=== PATIENT | male | born 1990 | race Caucasian/White ===

== ENCOUNTER 2018-10-09 00:57 | Emergency (ER) | payer OTHER ==
--- NOTE | 2018-10-09 01:33 | ED.PDOC ---
History of Present Illness - General Chief Complaint: Back Pain or Injury Stated Complaint: lower back pain, poss constipation Time Seen by Provider: 10/09/18 01:22 Source: patient Exam Limitations: no limitations - History of Present Illness Initial Comments: Patient presents with low back pain for 24 hours. It is mid-lumbar, constant, aching, worse with "certain types of movement", better with rest, denies previous episodes. He had N/V several times this morning. He has been able to hold down some liquids and soft foods this afternoon and evening. He denies any recent heavy physical activity. He drives a truck for a living. Smokes 1ppd. He was at another E.R[facility] yesterday for a painful left upper maxillary molar and was given Naproxen for that but he has not taken it, yet. He says he was not given an antibiotic. No other complaints. Timing/Duration: 24 hours Severity: mild Improving Factors: rest Worsening Factors: movement Associated Symptoms: other - as in HPI Allergies/Adverse Reactions: Allergies Penicillins Allergy (Verified 10/09/18 01:15) Home Medications: Ambulatory Orders Clindamycin HCl 300 mg PO QID #40 cap 10/09/18 Naproxen [Naproxen EC] 500 mg PO BID PRN 10/09/18 Tramadol HCl 50 mg PO Q6HR PRN 10/09/18 Review of Systems - Review of Systems Constitutional: States: no symptoms reported EENTM: States: no symptoms reported Respiratory: States: no symptoms reported Cardiology: States: no symptoms reported Gastrointestinal/Abdominal: States: see HPI Genitourinary: States: no symptoms reported Musculoskeletal: States: see HPI Skin: States: no symptoms reported Neurological: States: no symptoms reported Endocrine: States: no symptoms reported Hematologic/Lymphatic: States: no symptoms reported Past Medical History (General) - Patient Medical History Hx Seizures: No Hx Stroke: No Hx Dementia: No Hx Asthma: No Hx of COPD: No Hx Cardiac Disorders: No Hx Congestive Heart Failure: No Hx Pacemaker: No Hx Hypertension: No Hx Thyroid Disease: No Hx Diabetes: No Hx Gastroesophageal Reflux: No Hx Renal Disease: No Hx Cancer: No Hx of HIV: No Hx Hepatitis C: No Hx MRSA: No Surgical History: no surgical history - Vaccination History Hx Tetanus, Diphtheria Vaccination: No Hx Influenza Vaccination: No - Social History Hx Tobacco Use: Yes Family Medical History - Family History Mother Family History: Unknown Physical Exam - Physical Exam General Appearance: Alert Eye Exam: bilateral normal Ears, Nose, Throat: normal ENT inspection Neck: non-tender, full range of motion, supple, lymphadenopathy (L) - left anterior cervical LAD, TTP, mobile, fluctuant, rubbery in consistency, 2 cm Respiratory: lungs clear, normal breath sounds Cardiovascular/Chest: normal peripheral pulses, regular rate, rhythm Gastrointestinal/Abdominal: normal bowel sounds, non tender, soft Back Exam: normal inspection, no CVA tenderness Extremity: normal range of motion, non-tender, normal inspection Neurologic: no motor/sensory deficits, alert, normal mood/affect, oriented x 3 Skin Exam: normal color Lymphatic: no adenopathy Progress - Progress Progress: 10/09/18 03:09 Laboratory Tests 10/09/18 10/09/18 10/09/18 01:29 01:29 01:31 WBC 11.9 H RBC 4.71 Hgb 14.7 Hct 41.2 L MCV 87.5 MCH 31.3 H MCHC 35.8 RDW 12.9 Plt Count 254 MPV 7.5 Absolute Neuts (auto) 9.10 H Absolute Lymphs (auto) 1.60 Absolute Monos (auto) 1.10 H Absolute Eos (auto) 0.10 Absolute Basos (auto) 0.10 Neutrophils % 76.4 Lymphocytes % 13.5 L Monocytes % 8.9 Eosinophils % 0.7 L Basophils % 0.5 Sodium 141 Potassium 3.9 Chloride 103 Carbon Dioxide 25 Anion Gap 16.9 BUN 15 Creatinine 1.97 H BUN/Creatinine Ratio 7.6 L Random Glucose 108 H Serum Osmolality 282.6 Calcium 9.2 Total Bilirubin 0.9 AST 20 ALT 16 Alkaline Phosphatase 69 Serum Total Protein 7.7 Albumin 4.4 Globulin 3.3 Albumin/Globulin Ratio 1.3 Lipase 21 L Urine Color Yellow Urine Appearance Cloudy Urine pH 5.5 Ur Specific [place] <= 1.005 Urine Protein 30 Urine Glucose (UA) Negative Urine Ketones Negative Urine Blood Small H Urine Nitrite Negative Urine Bilirubin Negative Urine Urobilinogen 0.2 Ur Leukocyte Esterase Negative Urine RBC 0-1 Urine WBC 0-1 Ur Epithelial Cells 0 Ur Renal Epithelial Cell 0-1 Urine Bacteria [address] ab/pelvis showed no stone. I was concerned about the left anterior cervical LAD in relation to the tooth. In the context of the low grade fever, this could be a developing abscess or infection. I gave the patient clindamycin 300 mg po x one in the E.D. with instructions to call the dentist today and get an appointment in the next week. I gave him an RX for clindamycin 300 mg qid x 10 days. Care instructions given. E.R. warnings given. Questions were elicited and answered. Patient voiced understanding and agreement with the plan. Departure - Departure Clinical Impression: Low back pain, Pain, dental Disposition: Discharge to Home or Self Care Condition: Good Departure Forms: ED Discharge - Pt. Copy, Patient Portal Self Enrollment Instructions: DI for Low Back Pain Diet: resume usual diet, other - increase oral fluids Activity: increase activity as tolerated Referrals: UNKNOWN,PHYSICIAN [Primary Care Provider] - 1-2 Weeks Prescriptions: Clindamycin HCl 300 mg PO QID #40 cap Home Medications: Ambulatory Orders Clindamycin HCl 300 mg PO QID #40 cap 10/09/18 Naproxen [Naproxen EC] 500 mg PO BID PRN 10/09/18 Tramadol HCl 50 mg PO Q6HR PRN 10/09/18 Additional Instructions: Call a dentist today and see when they want to see you about your left sided dental infection.
--- NOTE | 2018-10-09 02:58 | CT ---
CLINICAL HISTORY: back pain, hematuria COMPARISON: None. TECHNIQUE: CT ABDOMEN PELVIS WITHOUT IV CONTRAST on 10/09/2018 2:24 AM CDT This exam was performed according to our departmental dose-optimization program, which includes automated exposure control, adjustment of the mA and/or kV according to patient size and/or use of iterative reconstruction technique. FINDINGS: Lower lungs are clear. Abdomen: The liver is normal in appearance. There is no biliary dilatation. The gallbladder is normal in appearance. The pancreas and spleen are normal in appearance. The adrenal glands and kidneys are unremarkable. Abdominal aorta is normal in course and caliber without aneurysm. There is no free air. There is no retroperitoneal adenopathy. Pelvis: There is no bowel obstruction. Urinary bladder is unremarkable. There is no free fluid. Appendix is normal. Skeleton: There are no acute osseous findings. No suspicious bony lesions. IMPRESSION: No acute inflammatory process. No renal or ureteral calculi. Electronically signed by: Miguel Dumas MD 10/09/2018 2:56 AM CDT
[2018-10-09] MEDS: CLINDAMYCIN HCL CAP 150 MG CAP PO ONE (03:19)
[2018-10-09 03:25] VITALS: BP 129/79; TEMP 99; O2SAT 99
== END 2018-10-09 03:26 | disposition home or self-care (01) ==
LOC: ER 00:57
DX: M54.5 Low back pain (principal); K08.89 Other specified disorders of teeth and supporting structures; R11.2 Nausea with vomiting, unspecified; R59.0 Localized enlarged lymph nodes; F17.210 Nicotine dependence, cigarettes, uncomplicated; Z88.0 Allergy status to penicillin